=== PATIENT | male | born 1970 | race Caucasian/White ===

== ENCOUNTER 2017-06-04 07:15 | Emergency (ER) | payer BC, OTHER ==
--- NOTE | 2017-06-04 07:49 | Emergency Department Record ---
History of Present Illness - General Chief complaint: Pain Stated complaint: PAIN WHEN BREATHING ON RIGHT SIDE Time Seen by Provider: 06/04/17 07:30 Source: Patient Mode of Arrival: Ambulatory Limitations: No limitations - History of Present Illness Initial comments: The patient is here due to R sided chest pain for about 7 hours. He describes the pain as a sharp stabbing aching pain under the R breast which intermittently radiates laterally. The patient denies any L sided CP, SOB, BHARTI, sweating, or BYERS. The pain ONLY comes on with deep breathing. He has had a recent dry cough but no fever, chills, body aches or LUNDBERG. The patient does have a hx of bronchitis and possibly pneumonia and has had similar issues in the past with those conditions. MD Complaint: Other Onset/Timin -: Hour(s) Location: Right, Other History of Same: No Quality: Aching, Sharp Consistency: Other - Related Data Home Medications Medication Instructions Recorded Confirmed Last Taken Atorvastatin Calcium [Lipitor] 10 mg PO QHS 06/04/17 06/04/17 06/03/17 Zolpidem Tartrate 10 mg PO QHS 06/04/17 06/04/17 06/01/17 Previous Rx's Medication Instructions Recorded Azithromycin [Zithromax] 250 mg PO DAILY #4 tab 06/04/17 Benzonatate [Tessalon Perle] 100 mg PO TID #15 capsule 06/04/17 Allergies Allergy/AdvReac Type Severity Reaction Status Date / Time No Known Drug Allergies Allergy Verified 06/04/17 07:28 Travel Screening - Travel/Exposure Within Last 30 Days Have you traveled within the last 30 days?: No - Travel/Exposure Within Last Year Have you traveled outside the [place] in the last year?: No - Additonal Travel Details Have you been exposed to anyone with a communicable illness?: No - Travel Symptoms Symptom Screening: None Review of Systems Constitutional: Denies: Chills, Fever Eyes: Denies: Eye discharge ENT: Denies: Congestion Respiratory: Reports: Cough. Denies: Dyspnea, Hemoptysis, Stridor, Wheezes Past Medical History - SOCIAL HISTORY Smoking Status: Never smoker Alcohol Use: Heavy Drug Use: None - RESPIRATORY Hx Respiratory Disorders: Yes Hx Bronchitis: Yes Hx Pneumonia: Yes - CARDIOVASCULAR Hx Cardio Disorders: Yes Hx Hypertension: Yes - NEURO Hx Neuro Disorders: No - GI Hx GI Disorders: Yes Hx Hiatal Hernia: Yes - Hx Genitourinary Disorders: No - ENDOCRINE Hx Endocrine Disorders: No - MUSCULOSKELETAL Hx Musculoskeletal Disorders: Yes Hx Arthritis: Yes - PSYCH Hx Psych Problems: No - HEMATOLOGY/ONCOLOGY Hx Hematology/Oncology Disorders: No Family Medical History Any Significant Family History?: No Hx Resp Disorders: Mother Physical Exam - General General Appearance: Alert, Oriented x3, Cooperative, No acute distress - Head Head exam: Atraumatic, Normocephalic, Normal inspection - Eye Eye exam: Normal appearance, PERRL - ENT Throat exam: Normal inspection. negative: Tonsillar erythema, Tonsillar exudate - Neck Neck exam: Normal inspection, Full ROM. negative: Tenderness - Respiratory Respiratory exam: Normal lung sounds bilaterally. negative: Respiratory distress - Cardiovascular Cardiovascular Exam: Regular rate, Normal rhythm, Normal heart sounds - GI/Abdominal GI/Abdominal exam: Soft, Normal bowel sounds. negative: Tenderness - Extremities Extremities exam: Normal inspection, Full ROM, Normal capillary refill. negative: Calf tenderness, Pedal edema, Tenderness - Neurological Neurological exam: Alert. negative: Motor sensory deficit Course Vital Signs 06/04/17 07:19 Temperature 97.8 F Pulse Rate 91 H Respiratory 18 Rate Blood Pressure 150/101 Pulse Ox 98 - Reevaluation(s) Reevaluation #1: The patient is doing better. He states the pain is much improved with the Toradol. I did discuss the xray which did demonstrate a subtle RUL infiltrate with the patient. Due to the mildly elevated D-dimer I did discuss the need for a CT with the patient to R/O PE. 06/04/17 9:00 Reevaluation #2: The patient is doing very well and denies any pain or discomfort with regular breathing. He also denies any SOB or fever. I did discuss the CT report and the need for F/U next week with his PCP and to bring the formal CT report. 06/04/17 10:04 Medical Decision Making - Data Complexity MDM Data: Labs Ordered and/or Reviewed, X-Ray Ordered and/or Reviewed, EKG Ordered and/or Reviewed - Lab Data Result diagrams: 06/04/17 07:45 06/04/17 07:45 - EKG Data -: EKG Interpreted by Me EKG: No Acute Changes (Mildly prolonged FL interval. O/W neg.) - Radiology Data Radiology results: Report reviewed (CXR: RUL infiltrate Chest CT: Neg PE.) Disposition Disposition: Discharge Clinical Impression: Pneumonia Qualifiers: Pneumonia type: due to unspecified organism Laterality: right Lung location: upper lobe of lung Qualified Code(s): J18.1 - Lobar pneumonia, unspecified organism Disposition: Home, Self-Care Condition: (2) Stable Instructions: Pneumonitis (ED) Additional Instructions: Please take Tylenol or Motrin for pain and continue the Zithromax tomorrow. Use the Tessalon for the cough. Please see your PCP next week for recheck and please bring your formal CT report. Return to the ER for any increased cough, fever, or pain. Prescriptions: Azithromycin [Zithromax] 250 mg PO DAILY #4 tab Benzonatate [Tessalon Perle] 100 mg PO TID #15 capsule Forms: Patient Portal Access Time of Disposition: 10:01 Quality - Quality Measures Quality Measures: N/A - Blood Pressure Screening View Details: Yes Does Patient Have Any of the Following: Active Dx of HTN Blood Pressure Classification: Hypertensive Reading Systolic Measurement: 150 Diastolic Measurement: 101 Screening for High Blood Pressure: Patient Exclusion, Hx of HTN [G9744]
[2017-06-04 07:56] LABS: BASO % 0.3 % (0-6); GRAN % 63.1 % (47-80); HEMATOCRIT 45.4 % (42.0-52.0); HEMOGLOBIN 15.3 gm/dl (14.0-18.0); LYMPH % 22.1 % (16-45); MEAN CELL VOLUME 84.9 fl (81-97); MEAN CORPUSCULAR HEMOGLOBIN 28.6 pg (27-33); MEAN CORPUSCULAR HGB CONC 33.7 g/dl (32-36); MEAN PLATELET VOLUME 9.9 fl (7.4-10.4); MONO % 10.5 % (0-9); PLATELET COUNT 407 K/uL (130-400); RED BLOOD COUNT 5.35 M/uL (4.40-5.70); RED CELL DISTRIBUTION WIDTH 12.8 % (11.5-14.5); WHITE BLOOD COUNT W/O DIFF 8.8 K/uL (4.2-12.2)
[2017-06-04 08:13] LABS: PARTIAL THROMBOPLASTIN TIME 28.2 SECONDS (24.5-39.1); PROTHROMBIN TIME (PATIENT) 10.4 SECONDS (9.5-12.1)
[2017-06-04 08:18] LABS: BLOOD UREA NITROGEN 19 mg/dL (6-20); CREATININE 0.9 mg/dL (0.7-1.2); EST GLOMERULAR FILTRATION RATE > 60 mL/min
[2017-06-04 08:21] LABS: GLUCOSE,RANDOM 98 mg/dL (74-109)
[2017-06-04 08:24] LABS: CREATINE PHOSPHOKINASE 159 U/L (39-308)
[2017-06-04 08:25] LABS: CKMB 3.2 ng/mL (<6.73)
[2017-06-04] MEDS ORDERED: KETOROLAC 30 MG/ML VIAL IVP ONE (08:27)
[2017-06-04] MEDS ORDERED: 0.9 % SODIUM CHLORIDE 1,000 ML BAG IV ONE (08:31)
[2017-06-04] MEDS ORDERED: CEFTRIAXONE SODIUM 1 GM in 0.9 % SODIUM CHLORIDE 100ML 100 ML IVPB ONE (08:35)
[2017-06-04] MEDS ORDERED: AZITHROMYCIN 500 MG TABLET PO ONE (08:36)
--- NOTE | 2017-06-05 07:07 | RADIOLOGY REPORT ---
DATE: 06/04/2017 at 0814. EXAM: CHEST, TWO VIEWS. HISTORY: Upper, anterior right-sided chest wall pain for seven hours. TECHNIQUE: Upright PA and lateral views of the chest. COMPARISON: None. FINDINGS: The heart is not enlarged, and the pulmonary vasculature is nondilated. Patchy mixed opacities are suggested in the lateral aspect of the right upper lobe consistent with atelectasis, infiltrate, or less likely scarring. The lungs and pleural spaces are otherwise clear. There are mild degenerative changes scattered throughout the visualized spine. IMPRESSION: A SMALL AREA OF PATCHY MIXED OPACITY WITHIN THE LATERAL RIGHT UPPER LOBE, DISCUSSED ABOVE. SHORT-TERM FOLLOW-UP RADIOGRAPHIC EXAMINATION IS RECOMMENDED. JOB NUMBER: [id number] MTDD
--- NOTE | 2017-06-05 08:26 | CT ANGIOGRAM REPORT ---
EXAM: CT ANGIOGRAM OF THE CHEST HISTORY: RIGHT SIDED CHEST PAIN. TECHNIQUE: Routine contrast enhanced helical CT examination of the thorax was performed utilizing a pulmonary embolus protocol with 90 ml of Omnipaque 350 utilized. Coronal and sagittal reformatted images are generated and reviewed. Comparison: Same day two view chest radiographic examination. FINDINGS: Opacification of the pulmonary arteries is satisfactory for interpretation. No luminal filling defect is noted in the outflow track, main arteries, lobar arteries nor proximal segmental arteries to suggest acute pulmonary embolic disease. The heart is not enlarged. No mediastinal mass nor adenopathy is seen. There is mild lymphoid tissue prominence in the right hilum. No lymphoid tissue prominence in the left hilum. There is wedge shaped confluent opacity in the lateral right upper lobe extending to the pleural surface measuring 2.3 x 4.2 cm. This is suspicious for pneumonia and there is possible early pneumonocele formation within. Minor patchy opacities are noted in the dependent lung bases consistent with healed granulomatous disease. Minor mixed opacity in the lingula and medial segment of the right middle lobe consistent with atelectasis or scar. There are several small calcified nodules scattered within each lung consistent with healed granulomatous disease. A couple tiny subpleural nodules in the posterolateral right lower lobe are also present. These are not definitely calcified. A similar focus is noted in the lateral left upper lobe as seen on image 86 of 257 measuring 2 mm. These are nonspecific though likely post inflammatory. The lungs and pleural spaces are otherwise clear. The adrenal glands are not enlarged. No lytic or blastic bone lesion. IMPRESSION: 1. NO CT EVIDENCE OF ACUTE PULMONARY EMBOLIC DISEASE. 2. WEDGE SHAPED CONFLUENT OPACITY IN THE RIGHT UPPER LOBE SUSPICIOUS FOR PNEUMONIA. THERE IS POSSIBLE EARLY PNEUMONOCELE FORMATION. THERE IS ALSO ASSOCIATED MILD LYMPHOID TISSUE PROMINENCE IN THE RIGHT HILUM. 3. PATCHY OPACITIES IN THE DEPENDENT LUNG BASES CONSISTENT WITH ATELECTASIS OR MILD INFILTRATE. 4. HEALED GRANULOMATOUS DISEASE. 5. THERE ARE A FEW SMALL NONCALCIFIED NODULES IN EACH LUNG WHICH ARE NONSPECIFIC. IF THERE IS NO HISTORY OF SMOKING AND NO HISTORY OF MALIGNANCY, NO FURTHER EVALUATION IS NECESSARY OTHERWISE, FOLLOW-UP CT EXAMINATION IN TWELVE MONTHS. JOB NUMBER: [id number] [facility]
== END 2017-06-04 10:08 | disposition home or self-care (01) ==
LOC: ER 07:15
DX: J18.1 Lobar pneumonia, unspecified organism (principal); I10 Essential (primary) hypertension
CPT/HCPCS: 99284 ×2; 96365; 96375; 82550; 85025; 85730; 85610; 82553; 80048; 84484; 85379; 71046; 71275; 93005; 93010; Q9967; J1885; J7030

== ENCOUNTER 2017-10-25 15:19 | Observation (INO) | payer BC ==
[2017-10-25] MEDS ORDERED: MORPHINE SULFATE 10 MG/ML VIAL IVP ONE ×3 (15:22→16:45)
--- NOTE | 2017-10-25 15:28 | Emergency Department Record ---
History of Present Illness - General Stated Complaint: chest jpain/willi Time Seen by Provider: 10/25/17 15:20 Source: Patient Mode of Arrival: Ambulatory Limitations: No limitations - History of Present Illness Initial Comments: 47 yo male presents with pain from his neck, through the left chest. He states the onset was while painting with his son at 3pm. He denies any strenuous lifting. He states it hurts to breath, move, twist, lift his arm, turn his neck. No specific injury. No cough. No recent medical problems. No history of neck disease. No CAD. No cough. He is treated for HTN by his doctor. He quite smoking many years ago. He had pneumonia in May but healthy since then. His pain and pneumonia were on the right at that time. PCP is Isaias Resendiz MD Complaint: Chest pain -: Hour(s) (1) Onset: Other (Onset while painting) Pain Location: Left chest Pain Radiation: Neck (on the left) Severity: Severe Quality: Aching Consistency: Constant Improves With: Nothing Worsens With: Exertion, Inspiration, Movement, Palpation Anginal Symptoms: Dyspnea Treatments Prior to Arrival: None - Related Data Previous Rx's Medication Instructions Recorded Azithromycin [Zithromax] 250 mg PO DAILY #4 tab 06/04/17 Benzonatate [Tessalon Perle] 100 mg PO TID #15 capsule 06/04/17 Allergies Allergy/AdvReac Type Severity Reaction Status Date / Time No Known Drug Allergies Allergy Verified 06/04/17 07:28 Review of Systems Constitutional: Denies: Chills, Fever, Malaise, Weakness Eyes: Denies: Eye discharge ENT: Denies: Congestion, Throat pain Respiratory: Reports: Cough, Dyspnea. Denies: Hemoptysis, Stridor, Wheezes Cardiovascular: Reports: Chest pain, Dyspnea on exertion. Denies: Palpitations , Syncope Endocrine: Denies: Fatigue, Polydipsia, Polyuria Gastrointestinal: Denies: Abdominal pain, Diarrhea, Nausea, Vomiting Genitourinary: Denies: Dysuria, Frequency, Hematuria Musculoskeletal: Denies: Arthralgia, Back pain, Joint swelling, Myalgia Skin: Denies: Bruising, Change in color, Rash Neurological: Denies: Headache, Numbness, Weakness Psychiatric: Denies: Anxiety Hematological/Lymphatic: Denies: Blood Clots, Easy bleeding, Easy bruising Past Medical History - SOCIAL HISTORY Smoking Status: Never smoker Drug Use: None - RESPIRATORY Hx Respiratory Disorders: Yes Hx Bronchitis: Yes Hx Pneumonia: Yes - CARDIOVASCULAR Hx Cardio Disorders: Yes Hx Hypertension: Yes - NEURO Hx Neuro Disorders: No - GI Hx GI Disorders: Yes Hx Hiatal Hernia: Yes - Hx Genitourinary Disorders: No - ENDOCRINE Hx Endocrine Disorders: No - MUSCULOSKELETAL Hx Musculoskeletal Disorders: Yes Hx Arthritis: Yes - PSYCH Hx Psych Problems: No - HEMATOLOGY/ONCOLOGY Hx Hematology/Oncology Disorders: No Family Medical History Hx Resp Disorders: Mother Physical Exam - General General Appearance: Alert, Oriented x3, Cooperative, Mild distress, Anxious Limitations: No limitations - Head Head exam: Atraumatic, Normocephalic, Normal inspection - Eye Eye exam: Normal appearance. negative: Conjunctival injection - ENT ENT exam: Normal exam, Mucous membranes moist Ear exam: Normal external inspection Nasal Exam: Normal inspection Mouth exam: Normal external inspection - Neck Neck exam: Normal inspection - Respiratory Respiratory exam: Accessory muscle use, Chest wall tenderness, Decreased breath sounds, Rhonchi. negative: Normal lung sounds bilaterally - Cardiovascular Cardiovascular Exam: Normal rhythm, Tachycardia Peripheral Pulses: 2+: Radial (R), Radial (L) - GI/Abdominal GI/Abdominal exam: Soft. negative: Tenderness - Rectal Rectal exam: Deferred - exam: Deferred - Extremities Extremities exam: Normal inspection, Normal capillary refill. negative: Full ROM (moving the arm reproduces the pain) - Back Back exam: Reports: Normal inspection, Muscle spasm, Paraspinal tenderness, Tenderness. Denies: CVA tenderness (R), CVA tenderness (L), Full ROM Image of Body Front/Back: 1 - tenderness to palpation medail to the scapula - Neurological Neurological exam: Alert, Normal gait, Oriented X3 - Psychiatric Psychiatric exam: Anxious - Skin Skin exam: Dry, Intact, Normal color, Warm Course - Reevaluation(s) Reevaluation #1: EKG #1: 1519 Rate: 112 Rhythm: Sinus Tachycardia [place]: Normal Intervals: Normal ST segments: Normal Significant motion artifact. Will repeat when pain is controlled Prior: No change from 06/04/17 10/25/17 15:31 The patient's pain on examination is very reproducible with movement, palpation and breathing. It is positional. He is most comfortable up right. The pain is worsened by laying down, palpation and any movement. 10/25/17 15:34 The EMR was reviewed. The patient was seen in May for right sided pain with breathing at that time. 10/25/17 15:50 On recheck the pain is still very positional, hurts with any inspiration or movement. 10/25/17 15:59 The CBC was reviewed WBC is 13.6 The D-Dimer is elevated at 1.96 10/25/17 16:16 The CMP was negative for acute changes The Troponin was negative On recheck the patient is starting to get much more relaxed. The pain with moving and breathing is greatly improved. 10/25/17 16:27 EKG #2: 1621 Rate: 82 Rhythm: Sinus [place]: Normal Intervals: [place] [address] ST segments: No acute changes Prior: Artifact resolved on 2nd EKG 10/25/17 16:30 CXR read as LLL air space opacity suspicious for pneumonia. 10/25/17 16:31 HR greatly improved to 82 100% oxygen saturation CTA ordered with elevated DDimer. 10/25/17 17:[address] was negative for PE, aneurysm, dissection. Dense consolidation of the left lower lung base likely pneumonia. 10/25/17 18:09 The patient at times on room air drops his saturations to the upper 80's I recommend admission, IV antibiotics, steroids, oxygen Dr Jaime accepts the admission Medical Decision Making - Lab Data Result diagrams: 10/25/17 15:25 10/25/17 15:25 Disposition Disposition: Admit Clinical Impression: Pneumonia Qualifiers: Pneumonia type: due to unspecified organism Laterality: bilateral Lung location : lower lobe of lung Qualified Code(s): J18.1 - Lobar pneumonia, unspecified organism Disposition: Still a Patient at [facility] [place] Decision to Admit: Admit from ER Decision to Admit Date: 10/25/17 Decision to Admit Time: 18:09 Condition: (2) Stable Time of Disposition: 18:09 Quality - Quality Measures Quality Measures: N/A - Blood Pressure Screening Does Patient Have Any of the Following: Active Dx of HTN Blood Pressure Classification: Pre-Hypertensive BP Reading Systolic Measurement: 137 Diastolic Measurement: 83 Screening for High Blood Pressure: Patient Exclusion, Hx of HTN [G9854]
[2017-10-25 15:32] LABS: BASO % 0.1 % (0-6); EOS % 1.7 % (0-6); GRAN % 68.4 % (47-80); HEMATOCRIT 48.2 % (42.0-52.0); LYMPH % 19.5 % (16-45); MEAN CORPUSCULAR HEMOGLOBIN 28.9 pg (27-33); MEAN CORPUSCULAR HGB CONC 33.2 g/dl (32-36); MEAN PLATELET VOLUME 9.9 fl (7.4-10.4); MONO % 10.3 % (0-9); PLATELET COUNT 373 K/uL (130-400); RED BLOOD COUNT 5.54 M/uL (4.40-5.70); RED CELL DISTRIBUTION WIDTH 14.7 % (11.5-14.5); WHITE BLOOD COUNT W/O DIFF 13.8 K/uL (4.2-12.2)
[2017-10-25] MEDS ORDERED: KETOROLAC 30 MG/ML VIAL IVP ONE (15:34)
[2017-10-25 15:43] LABS: BLOOD UREA NITROGEN 15 mg/dL (6-20); CREATININE 0.9 mg/dL (0.7-1.2); EST GLOMERULAR FILTRATION RATE > 60 mL/min
[2017-10-25 15:46] LABS: GLUCOSE,RANDOM 100 mg/dL (74-109); PARTIAL THROMBOPLASTIN TIME 28.1 SECONDS (24.5-39.1); PROTHROMBIN TIME (PATIENT) 10.4 SECONDS (9.5-12.1)
[2017-10-25 15:48] LABS: ALT/SGPT 42 U/L (<41)
[2017-10-25 15:49] LABS: ALB/GLOB RATIO 1.4 (1.1-1.8); ALBUMIN 4.7 g/dL (4.0-5.0); ALKALINE PHOSPHATASE 86 U/L (40-129); AST/SGOT 30 U/L (10.0-50.0)
[2017-10-25] MEDS ORDERED: ACETAMINOPHEN 1,000 MG/100 ML BTL IVPB ONE (15:49)
[2017-10-25] MEDS ORDERED: CEFTRIAXONE SODIUM 1 GM in 0.9 % SODIUM CHLORIDE 100ML 100 ML IVPB ONE (17:55)
[2017-10-25] MEDS ORDERED: DEXAMETHASONE SOD PHOSPHATE 10MG/ML VIAL IVP ONE (17:55)
[2017-10-25] MEDS ORDERED: AZITHROMYCIN 500 MG TABLET PO ONE (17:55)
[2017-10-25] MEDS ORDERED: 0.9 % SODIUM CHLORIDE 1000ML 1,000 ML IV PRN (18:37)
[2017-10-25] MEDS ORDERED: ACETAMINOPHEN 500 MG TABLET PO PRN (18:37)
[2017-10-25] MEDS ORDERED: MORPHINE SULFATE 10 MG/ML VIAL IVP PRN (18:37)
[2017-10-25] MEDS ORDERED: IPRATROPIUM/ALBUTEROL (0.5MG/3MG) NEB INH PRN (18:37)
[2017-10-25] MEDS ORDERED: KETOROLAC 30 MG/ML VIAL IVP PRN (18:37)
[2017-10-25] MEDS ORDERED: CEFTRIAXONE SODIUM 1 GM in 0.9 % SODIUM CHLORIDE 100ML 100 ML IVPB SCH (18:37)
[2017-10-25] MEDS ORDERED: AZITHROMYCIN 500 MG in 0.9 % SODIUM CHLORIDE 250ML 250 ML IVPB SCH (18:37)
[2017-10-25] MEDS: METHYLPREDNISOLONE PF 125MG/VIAL IVP SCH (19:51)
[2017-10-25] MEDS ORDERED: ZOLPIDEM TARTRATE 5 MG TABLET PO SCH (22:00)
[2017-10-25] MEDS ORDERED: Non-Formulary MISC (Zolpidem Tartrate [Zolpidem Tartrate] 10 MG) PO SCH (22:00)
[2017-10-25] MEDS: BENZONATATE 100 MG CAPSULE PO SCH (22:06)
[2017-10-26] MEDS: METHYLPREDNISOLONE PF 125MG/VIAL IVP SCH ×2 (02:14→09:53)
[2017-10-26 06:09] LABS: BASO % 0.1 % (0-6); HEMATOCRIT 43.7 % (42.0-52.0); HEMOGLOBIN 14.6 gm/dl (14.0-18.0); LYMPH % 2.8 % (16-45); MEAN CELL VOLUME 87.6 fl (81-97); MEAN CORPUSCULAR HEMOGLOBIN 29.3 pg (27-33); MEAN CORPUSCULAR HGB CONC 33.4 g/dl (32-36); MEAN PLATELET VOLUME 10.1 fl (7.4-10.4); MONO % 3.7 % (0-9); PLATELET COUNT 327 K/uL (130-400); RED BLOOD COUNT 4.99 M/uL (4.40-5.70); RED CELL DISTRIBUTION WIDTH 14.8 % (11.5-14.5); WHITE BLOOD COUNT W/O DIFF 19.1 K/uL (4.2-12.2)
[2017-10-26] MEDS: BENZONATATE 100 MG CAPSULE PO SCH (09:55)
[2017-10-26] MEDS ORDERED: CEFTRIAXONE SODIUM 1 GM in 0.9 % SODIUM CHLORIDE 100ML 100 ML IVPB ONE (11:26)
[2017-10-26] MEDS ORDERED: KETOROLAC 30 MG/ML VIAL IVP ONE (11:26)
[2017-10-26] MEDS ORDERED: AZITHROMYCIN 500 MG TABLET PO ONE (11:29)
--- NOTE | 2017-10-26 12:04 | Discharge Note ---
VTE H&P Assessment - Risk for VTE Risk for VTE: No Risk Level: Very Low Risk Assessment Date: 10/26/17 Risk Assessment Time: 11:58 VTE Orders Placed or Will Be Placed: No VTE Reason for No Prophylaxis: Not Indicated Discharge Medications - Discharge Medications Prescriptions: Azithromycin [Zithromax] 500 mg PO DAILY #10 tab Cephalexin [Keflex] 500 mg PO QID #40 cap Home Medications: Ambulatory Orders Atorvastatin Calcium [Lipitor] 10 mg PO QHS 06/04/17 [Last Taken 06/03/17] Benzonatate [Tessalon Perle] 100 mg PO TID #15 capsule 06/04/17 [Last Taken Unknown] Zolpidem Tartrate 10 mg PO QHS 06/04/17 [Last Taken 06/01/17] Acetaminophen [Tylenol 500Mg Tab] 1,000 mg PO Q6H PRN tablet 10/26/17 [Last Taken Unknown] Azithromycin [Zithromax] 500 mg PO DAILY #10 tab 10/26/17 [Last Taken Unknown] Cephalexin [Keflex] 500 mg PO QID #40 cap 10/26/17 [Last Taken Unknown] Discharge Note - Date Date of Discharge Note: 10/26/17 Disposition: Home, Self-Care Condition: (2) Stable Instructions: Pneumonia (DC) Additional Instructions: follow up with Dr. Isaias Resendiz in 3 to 5 days take zithromycin 500 mg once a day keflex 500 mg four times a day Forms: Patient Portal Access Diet at Discharge: Regular Diet
--- NOTE | 2017-10-27 14:39 | RADIOLOGY REPORT ---
EXAM: CHEST 1 VIEW HISTORY: CHEST PAIN. TECHNIQUE: AP chest. COMPARISON: 06/04/17 chest. FINDINGS: Heart size is normal. Air space opacity left lung base, suspicious for pneumonia. No pneumothorax. IMPRESSION: FINDINGS SUSPICIOUS FOR LEFT BASILAR PNEUMONIA. RECOMMEND FOLLOW-UP TO RESOLUTION. JOB NUMBER: [id number] MTDD
--- NOTE | 2017-10-27 14:52 | CT ANGIOGRAM REPORT ---
EXAM: CT ANGIOGRAM CHEST CTA w contrast HISTORY: LEFT-SIDED PAIN. TECHNIQUE: CTA chest performed following IV administration of 100 mL Omnipaque- 350 contrast. Axial images were obtained with coronal and sagittal MIP reconstructions. COMPARISON: Prior CTA chest 06/04/17. FINDINGS: The mediastinal vasculature enhances normally. There is no intraluminal filling defect to suggest pulmonary embolus. Negative for thoracic aortic aneurysm or dissection. Cardiomegaly. Nonenlarged mediastinal and hilar lymph nodes. Limited evaluation of the upper abdomen is grossly unremarkable. Osseous structures are grossly intact. No pneumothorax. Minor emphysematous changes in the lung apices. Airspace opacities with consolidative changes in the lung bases bilaterally, more pronounced on the left. Tiny left effusion is also suggested. There is somewhat nodular appearance to the airspace opacity in the medial left lung base. IMPRESSION: 1. NEGATIVE FOR PULMONARY EMBOLUS, THORACIC AORTIC ANEURYSM, OR DISSECTION. 2. RATHER EXTENSIVE AIRSPACE OPACITIES AND CONSOLIDATIVE CHANGES IN THE LUNG BASES BILATERALLY. A MORE NODULAR APPEARANCE TO AN OPACITY IN THE MEDIAL LEFT LUNG BASE. FINDINGS MAY REFLECT PNEUMONIA, HOWEVER, CONTINUED CLOSE FOLLOW-UP RECOMMENDED FOLLOWING APPROPRIATE THERAPY TO ENSURE RESOLUTION IS RECOMMENDED. JOB NUMBER: [id number] [facility]
--- NOTE | 2017-10-28 12:40 | Discharge Summary ---
DATE OF ADMISSION: 10/25/2017 DATE OF DISCHARGE: 10/26/2017 Attending physician: Eduardo Jaime, DO DISCHARGE DIAGNOSES: 1. Left lower lobe pneumonia. 2. Left pleurisy. 3. Musculoskeletal chest wall pain, left thoracic chest area. 4. History of hypercholesterolemia. REASON FOR HOSPITALIZATION: The patient had left-sided chest pain and left neck pain after painting. Came into the emergency department, seen in the emergency department by Dr. Knapp, admitted to the hospital for left lower lobe pneumonia. He had a CTA of the chest which was negative for PE, dissection did show infiltrate in the left lower lobe. Chest x-ray also showed a left lower lobe infiltrate. EKG showing no acute changes. Troponin T was negative. The D-Dimer was elevated at 1.98. He did have some low pulse ox readings in the emergency department. Pulse ox in the high 80s; however, that has resolved at this time. SIGNIFICANT FINDINGS: Chest x-ray showing a left lower lobe infiltrate. CTA negative for PE, but showing a left lower lobe infiltrate. EKG negative. D-Dimer is elevated at 1.98. The Troponin T was negative. THERAPY PROVIDED: He was given Decadron 10 mg IV, Solu-Medrol 60 mg IV. He was given antibiotics Rocephin 1 gram IV and Azithromycin IV. He was also given oxygen therapy and IV fluids. The patient is feeling much better today. He still has pain on palpation of the left chest wall. HOSPITAL COURSE: Improved. He wants to go home. They recommended he stay, however he said that he would feel much better at home. Since his vitals have stabilized, I feel he could safely go home with close followup with Dr. Rhett Resendiz for making sure this totally resolves. His is at the bedside, she is willing to watch him and bring him back if he gets worse. CONDITION ON DISCHARGE: Improved and stable. DISCHARGE INSTRUCTIONS: 1. Follow up with Dr. Rhett Resendiz in 3 to 5 days. 2. We will give one more dose of Rocephin prior to discharge. 3. Motrin 600 mg t.i.d. [id number]. 4. Keflex 500 mg 4 times a day for 10 days. 5. Azithromycin 500 mg once a day. CC: Dr. Rhett JON
--- NOTE | 2017-10-28 12:40 | History and Physical Report ---
DATE OF ADMISSION: 10/25/2017 Surgeon: Eduardo Jaime DO CHIEF COMPLAINT: Left-sided chest pain which started while painting at home just prior to arrival to the emergency department. He did have some diarrhea during the day, 3 loose stools, possible cough, but he did not say much of a cough. No congestion. HISTORY OF PRESENT ILLNESS: He was seen in the emergency department by Dr. Knapp and admitted for left lower lobe pneumonia, left pleurisy, and left musculoskeletal chest wall pain. He states the pain started in his neck and in the left chest. He was painting with his son at 3 p.m. when it came on. He denies any strenuous lifting. He states it hurts to take a breath, move, twist, or lift his arm. It is reproducible on palpation. No coronary artery disease, no neck disease. He does have lumbar back pain, which he is being treated with injections with a doctor at [facility]. He quit smoking cigarettes 10 years ago. He stopped chewing tobacco 1 month ago. He did have a bout of pneumonia in May of this year, right-sided though. The patient was given IV Decadron, IV Solu-Medrol, morphine, and IV Tylenol in the emergency department. His white count went up because of the IV Decadron and IV Solu-Medrol. PAST MEDICAL HISTORY: Hypercholesterolemia, possibly hypertension, but not taking any medication for it. His blood pressure was much better today. It was up when he had chest wall pain. He has GERD and arthritis. PAST SURGICAL HISTORY: He has had an umbilical hernia repair, bilateral knee surgeries, back injections. MEDICATIONS ON ADMISSION: 1. Ambien 10 mg q.h.s. 2. Tessalon Perles, probably not taking those, they are probably from his pneumonia in May of 2017. 3. Atorvastatin 10 mg daily at night. ALLERGIES: No known drug allergies. FAMILY PSYCHOSOCIAL HISTORY: His mother had respiratory problems. He stopped smoking cigarettes 10 years ago, he stopped chewing tobacco 1 month ago. No alcohol or drug use. REVIEW OF SYSTEMS: HEENT: Did not have really any congestion, cough, or sore throat. A little bit concerned about the diagnosis of pneumonia with those symptoms absent. CARDIOVASCULAR: See chief complaint. He did have left-sided chest pain, which was reproducible and it is still reproducible when he touches his left chest now. He denies any heart disease or orthopnea. He was short of breath when he came into the emergency department yesterday. He is breathing better today. His pulse ox is back to normal on room air. RESPIRATORY: See chief complaint. He has a slight cough, congestion, and left-sided chest pain. GASTROINTESTINAL: No nausea, vomiting, diarrhea, or black stools or bloody stools. He did have some diarrhea yesterday, three bouts and none today. GENITOURINARY: No dysuria, hematuria, or frequency or burning on urination. MUSCULOSKELETAL: He has arthritis and low back pain. NEUROLOGIC: No CVA paralysis or paresthesias. ENDOCRINE: No diabetes or thyroid disease. INTEGUMENT: No rash, ulcer, change in moles, or yellow skin. PHYSICAL EXAMINATION: GENERAL: Height is 5 feet 8 inches. Weight is 230 pounds. VITAL SIGNS: Temperature is 98.4, pulse is 107, blood pressure is 113/90, respiratory rate is 18, pulse ox is 96% on room air. HEENT: Pupils are equal, round, and reactive to light and accomodation. Extraocular muscles intact. Throat is clear. Nose is clear. Tympanic membranes are almaguer. NECK: Supple. No jugular venous distention, no hepatojugular reflux, no carotid bruits. Thyroid is smooth. CARDIOVASCULAR: Regular rate and rhythm. No clicks, rubs, or gallops. RESPIRATORY: Clear to auscultation. Breath wound are equal bilaterally. No echophony heard in the left lower quadrant. ABDOMEN: Soft and nontender. No hepatosplenomegaly, no tenderness. Bowel sounds are active, no bruits. He is overweight. EXTREMITIES: No pitting edema, no cyanosis, no clubbing. Full range of motion, peripheral pulses are good. BREASTS: Normal male breasts. RECTAL: Deferred. GENITALIA: Deferred. NEUROLOGIC: Cranial nerves II through XII intact. No gross defects. Sensation normal, strength normal, deep tendon reflexes equal bilaterally. Babinski's is negative. MENTAL STATUS: Alert and oriented x 3. IMPRESSION: 1. Left lower lobe pneumonia. 2. Left pleurisy. 3. History of hypercholesterolemia. 4. Musculoskeletal chest wall pain on the left side of his chest. PLAN: 1. Continue the IV Rocephin and Azithromycin, however, the patient would like to go home. We will give him 1 dose of Rocephin and then continue the Azithromycin once a day. 2. Motrin for pain 600 mg 3 times a day. 3. Close follow up with Dr. Resendiz. He does not want to stay in the hospital. I told him the best option would be to stay in the hospital for further evaluation, however he was very set on going home, so we will do the second best treatment of treating him outpatient with Azithromycin following up with Dr. Rhett Resendiz in the next 3 to 5 days. MTDD
== END 2017-10-26 12:45 | disposition home or self-care (01) ==
LOC: ER 15:19 → MEDSURG 18:25 → INTOOBSV 18:25
PROVIDERS: ADMIT Emergency Medicine; ATTEND Emergency Medicine
DX: J18.1 Lobar pneumonia, unspecified organism (principal); R09.1 Pleurisy; I10 Essential (primary) hypertension; M19.90 Unspecified osteoarthritis, unspecified site; Z87.891 Personal history of nicotine dependence; E78.00 Pure hypercholesterolemia, unspecified; K21.9 Gastro-esophageal reflux disease without esophagitis; K44.9 Diaphragmatic hernia without obstruction or gangrene
CPT/HCPCS: 99285 ×2; 96376; 96365; 96366; 96375; 85025; 85730; 85610; 80053; 84484; 85379; 85027; 71045; 71275; 93005; 93010; G0378 ×2; Q9967; J1885 ×2; J3490; J1100; J2270; 99220; J2930

== ENCOUNTER 2017-10-28 06:01 | Emergency (ER) | payer BC ==
[2017-10-28] MEDS ORDERED: FENTANYL PF 100MCG/2ML VIAL IVP ONE (06:25)
[2017-10-28] MEDS ORDERED: KETOROLAC 30 MG/ML VIAL IVP ONE (06:25)
[2017-10-28] MEDS ORDERED: 0.9 % SODIUM CHLORIDE 1000ML 1,000 ML IV SCH (06:30)
--- NOTE | 2017-10-28 06:32 | Emergency Department Record ---
History of Present Illness - General Chief Complaint: Shortness of breath Stated Complaint: DIAGNOSED SATURDAY W/PNEUMONIA Time Seen by Provider: 10/28/17 06:19 Source: Patient Mode of Arrival: Ambulatory Limitations: No limitations - History of Present Illness Initial Comments: 47 yo male presents to ED for evaluation of left sided chest pain symptoms following diagnosis and admission for left sided pneumonia. Patient reports that he has been taking Zithromax and Keflex as directed for his pneumonia, has been taking motrin as needed for his pain symptoms. Patient reports pain with with movement and breathing. Patient denies history of DVT/PE, denies health problems at his baseline. MD Complaint: Chest pain Onset/Timin -: Days(s) Radiation: Back Severity: Moderate Severity scale (1-10): 8 Quality: Sharp Consistency: Constant Improves With: Nothing Worsens With: Exertion, Inspiration, Lying flat, Movement Associated Symptoms: Chest pain Treatments Prior to Arrival: Other - Related Data Home Oxygen Therapy: No Previous Rx's Medication Instructions Recorded Benzonatate [Tessalon Perle] 100 mg PO TID #15 capsule 06/04/17 Acetaminophen [Tylenol 500Mg Tab] 1,000 mg PO Q6H PRN tablet 10/26/17 Azithromycin [Zithromax] 500 mg PO DAILY #10 tab 10/26/17 Cephalexin [Keflex] 500 mg PO QID #40 cap 10/26/17 Hydrocodone/Acetaminophen [[place] 1 each PO Q6H PRN #8 tablet 10/28/17 5-325 Tablet] Allergies Allergy/AdvReac Type Severity Reaction Status Date / Time No Known Drug Allergies Allergy Verified 06/04/17 07:28 Travel Screening - Travel/Exposure Within Last 30 Days Have you traveled within the last 30 days?: No - Travel/Exposure Within Last Year Have you traveled outside the [place] in the last year?: No - Additonal Travel Details Have you been exposed to anyone with a communicable illness?: No - Travel Symptoms Symptom Screening: None Review of Systems Constitutional: Denies: Chills, Fever, Malaise, Night sweats Eyes: Denies: Eye discharge, Eye pain ENT: Denies: Congestion, Ear pain, Epistaxis Respiratory: Denies: Cough, Dyspnea, Hemoptysis Cardiovascular: Reports: Chest pain, Dyspnea on exertion. Denies: Edema Endocrine: Denies: Fatigue, Heat or cold intolerance Gastrointestinal: Denies: Abdominal pain, Nausea, Vomiting Genitourinary: Denies: Incontinence, Retention Musculoskeletal: Denies: Arthralgia, Back pain Skin: Denies: Bruising, Change in color Neurological: Denies: Abnormal gait, Confusion, Headache, Seizure Psychiatric: Denies: Anxiety Hematological/Lymphatic: Denies: Anemia, Blood Clots Past Medical History - SOCIAL HISTORY Smoking Status: Never smoker Alcohol Use: Heavy Alcohol Use Comment: 6 pk daily Drug Use: None - RESPIRATORY Hx Respiratory Disorders: Yes Hx Bronchitis: Yes Hx Pneumonia: Yes - CARDIOVASCULAR Hx Cardio Disorders: Yes Hx Hypertension: Yes - NEURO Hx Neuro Disorders: No - GI Hx GI Disorders: Yes Hx Hiatal Hernia: Yes - Hx Genitourinary Disorders: No - ENDOCRINE Hx Endocrine Disorders: No Hx Diabetes: No Hx Thyroid Disease: No - MUSCULOSKELETAL Hx Musculoskeletal Disorders: Yes Hx Arthritis: Yes - PSYCH Hx Psych Problems: No - HEMATOLOGY/ONCOLOGY Hx Hematology/Oncology Disorders: No Family Medical History Any Significant Family History?: No Hx Cancer: Grandparents Hx Resp Disorders: Mother Physical Exam - General General Appearance: Alert, Oriented x3, Cooperative, Moderate distress Limitations: No limitations - Head Head exam: Atraumatic, Normocephalic, Normal inspection Head exam detail: negative: Abrasion, Contusion, Rader's sign, General tenderness, Hematoma, Laceration - Eye Eye exam: Normal appearance. negative: Conjunctival injection, Periorbital swelling, Periorbital tenderness, Scleral icterus - ENT Ear exam: negative: Auricular hematoma, Auricular trauma Nasal Exam: negative: Active bleeding, Discharge, Dried blood, Foreign body Mouth exam: negative: Drooling, Laceration, Muffled voice, Tongue elevation - Neck Neck exam: Normal inspection. negative: Meningismus, Tenderness - Respiratory Respiratory exam: Other (Decreased BS left diffusely). negative: Rales, Respiratory distress, Rhonchi, Stridor - Cardiovascular Cardiovascular Exam: Regular rate, Normal rhythm, Normal heart sounds - GI/Abdominal GI/Abdominal exam: Soft. negative: Rebound, Rigid, Tenderness - Rectal Rectal exam: Deferred - exam: Deferred - Extremities Extremities exam: Normal inspection. negative: Calf tenderness, Pedal edema, Tenderness - Back Back exam: Denies: CVA tenderness (R), CVA tenderness (L) - Neurological Neurological exam: Alert, Normal gait, Oriented X3 - Psychiatric Psychiatric exam: Normal affect, Normal mood - Skin Skin exam: Normal color. negative: Abrasion Type of lesion: negative: abrasion Course Vital Signs 10/28/17 06:09 Temperature 97.8 F Pulse Rate [ 83 Pulse Ox Probe] Respiratory 20 Rate Blood Pressure 126/113 [Left Arm] Pulse Ox 98 - Reevaluation(s) Reevaluation #1: 10/28/17 06:32 EKG: NSR 99 Normal axis, normal intervals No acute ST-T wave changes Reevaluation #2: 10/28/17 06:55 Laboratory studies were reviewed, WBC 16.4, labs are otherwise grossly unremarkable for an acute process. CXR: LLL infiltrate. Reevaluation #3: 10/28/17 07:20 Patient was reassessed, reports that his pain symptoms are 6/10 on re- examination. Patient declined fentanyl. Discussed options for pain control including admission vs. a short-course of [place] as needed for 48 hours, patient has decided that he would like to go home with a short-course of [place] for his pain symptoms and follow-up with his PCP ( Dr. Resendiz) later today. Patient appears stable for discharge at this time. Medical Decision Making - Lab Data Result diagrams: 10/28/17 06:20 10/28/17 06:20 Disposition Disposition: Discharge Clinical Impression: Pneumonia Qualifiers: Pneumonia type: due to unspecified organism Laterality: left Lung location: lower lobe of lung Qualified Code(s): J18.1 - Lobar pneumonia, unspecified organism Disposition: Home, Self-Care Condition: (2) Stable Instructions: Community Acquired Pneumonia (ED) Additional Instructions: Return to ED if your symptoms worsen or if you have any concerns. Urania as directed. Follow-up with your family doctor in 1-3 days as directed. Prescriptions: Hydrocodone/Acetaminophen [U[place]ia 5-325 Tablet] 1 each PO Q6H PRN #8 tablet PRN Reason: Pain - Mod To Severe (5-10) Forms: Patient Portal Access Time of Disposition: Quality - Quality Measures Quality Measures: N/A - Blood Pressure Screening Does Patient Have Any of the Following: No Blood Pressure Classification: Hypertensive Reading Systolic Measurement: 126 Diastolic Measurement: 113 Screening for High Blood Pressure: < First Hypertensive BP, F/U Documented > [ G8950] First Hypertensive Follow-up Interventions: Referral to alternative/primary care provider.
[2017-10-28 06:34] LABS: BASO % 0.1 % (0-6); EOS % 1.3 % (0-6); GRAN % 77.3 % (47-80); HEMATOCRIT 43.1 % (42.0-52.0); HEMOGLOBIN 14.3 gm/dl (14.0-18.0); LYMPH % 10.4 % (16-45); MEAN CELL VOLUME 88.7 fl (81-97); MEAN CORPUSCULAR HEMOGLOBIN 29.4 pg (27-33); MEAN CORPUSCULAR HGB CONC 33.2 g/dl (32-36); MEAN PLATELET VOLUME 10.6 fl (7.4-10.4); MONO % 10.9 % (0-9); PLATELET COUNT 325 K/uL (130-400); RED BLOOD COUNT 4.86 M/uL (4.40-5.70); RED CELL DISTRIBUTION WIDTH 15.3 % (11.5-14.5); WHITE BLOOD COUNT W/O DIFF 16.4 K/uL (4.2-12.2)
[2017-10-28 06:44] LABS: BLOOD UREA NITROGEN 26 mg/dL (6-20); EST GLOMERULAR FILTRATION RATE > 60 mL/min
[2017-10-28 06:45] LABS: TOTAL PROTEIN 6.9 g/dL (6.6-8.7)
[2017-10-28 06:47] LABS: GLUCOSE,RANDOM 104 mg/dL (74-109)
[2017-10-28 06:49] LABS: ALT/SGPT 81 U/L (<41); AST/SGOT 44 U/L (10.0-50.0)
[2017-10-28 06:50] LABS: ALB/GLOB RATIO 1.2 (1.1-1.8); ALBUMIN 3.8 g/dL (4.0-5.0); ALKALINE PHOSPHATASE 89 U/L (40-129)
[2017-10-28] MEDS ORDERED: HYDROCODONE/APAP 5/325MG TABLET PO ONE (07:20)
--- NOTE | 2017-10-29 07:17 | RADIOLOGY REPORT ---
EXAM: CHEST, TWO VIEWS HISTORY: LEFT SIDED CHEST PAIN, DIFFICULTY IN BREATHING. TECHNIQUE: PA and lateral views of the chest were obtained. Comparison: Portable chest 10/25/17, report of the prior study not as yet available within PACS. FINDINGS: Cardiomegaly. Minor streaky atelectasis or infiltrate in the left base. No pleural effusion or pneumothorax evident. Prominent density overlying the lung base anteriorly in the lateral view is probably largely related to a prominent epipericardial fat pad when compared to the prior CT of . IMPRESSION: 1. CARDIOMEGALY. 2. MILD STREAKY ATELECTASIS OR INFILTRATE IN THE LEFT BASE. JOB NUMBER: [id number] [facility]
[2017-10-30] MEDS ORDERED: HYDROCODONE/APAP 7.5/325MG TABLET PO PRN (09:03)
== END 2017-10-28 07:33 | disposition home or self-care (01) ==
LOC: ER 06:01
DX: J18.1 Lobar pneumonia, unspecified organism (principal); R06.02 Shortness of breath; I10 Essential (primary) hypertension; F17.210 Nicotine dependence, cigarettes, uncomplicated
CPT/HCPCS: 99284 ×2; 96374; 85025; 80053; 84484; 71046; 93005; 93010; J1885; J7030

== ENCOUNTER 2017-10-30 02:46 | Inpatient (IN) | payer BC ==
[2017-10-30] MEDS ORDERED: ONDANSETRON HCL IV 4 MG/2 ML VIAL IVP ONE (02:51)
[2017-10-30] MEDS ORDERED: FENTANYL PF 100MCG/2ML VIAL IVP ONE (02:52)
[2017-10-30] MEDS ORDERED: KETOROLAC 30 MG/ML VIAL IVP ONE (02:52)
--- NOTE | 2017-10-30 02:58 | Emergency Department Record ---
History of Present Illness - General Chief Complaint: Shortness of breath Stated Complaint: BHARTI Time Seen by Provider: 10/30/17 02:47 Source: Patient Mode of Arrival: Ambulatory Limitations: No limitations - History of Present Illness Initial Comments: 47 yo male presents to ED for evaluation of continued right sided chest pain following recent diagnosis of PNA. Patient was admitted and started on antibiotics, returned 10/28 for worsening pain symptoms. Patient was willing to try [place] as needed for his pain symptoms at that time, however [place] has not been helping. Patient reports increased BHARTI and pain symptoms. Patient's SO also reports that she has been monitoring his oxygen saturation, has been unable to obtain a reading greater than 94%. Patient denies fevers, chills, or vomiting symptoms. Patient denies history of DVT, calf swelling or pain symptoms. MD Complaint: Chest pain Onset/Timin -: Week(s) Severity: Severe Quality: Sharp, Stabbing Consistency: Constant Improves With: Nothing Worsens With: Other (Coughing, deep breaths) Known History Of: Other Context: Recent illness, Recent URI Associated Symptoms: Denies other symptoms Treatments Prior to Arrival: Other ([place], Zithromax) - Related Data Home Oxygen Therapy: No Previous Rx's Medication Instructions Recorded Benzonatate [Tessalon Perle] 100 mg PO TID #15 capsule 06/04/17 Acetaminophen [Tylenol 500Mg Tab] 1,000 mg PO Q6H PRN tablet 10/26/17 Azithromycin [Zithromax] 500 mg PO DAILY #10 tab 10/26/17 Cephalexin [Keflex] 500 mg PO QID #40 cap 10/26/17 Hydrocodone/Acetaminophen [[place] 1 each PO Q6H PRN #8 tablet 10/28/17 5-325 Tablet] Allergies Allergy/AdvReac Type Severity Reaction Status Date / Time No Known Drug Allergies Allergy Verified 06/04/17 07:28 Review of Systems Constitutional: Denies: Chills, Fever, Malaise, Night sweats Eyes: Denies: Eye discharge, Eye pain ENT: Reports: Congestion. Denies: Ear pain, Epistaxis Respiratory: Reports: Cough, Dyspnea. Denies: Hemoptysis Cardiovascular: Reports: Chest pain. Denies: Dyspnea on exertion Endocrine: Denies: Fatigue, Heat or cold intolerance Gastrointestinal: Denies: Abdominal pain, Nausea, Vomiting Genitourinary: Denies: Incontinence, Retention Musculoskeletal: Denies: Arthralgia, Back pain, Gout, Joint swelling Skin: Denies: Bruising, Change in color Neurological: Denies: Abnormal gait, Confusion, Seizure Psychiatric: Denies: Anxiety Hematological/Lymphatic: Denies: Anemia, Blood Clots Past Medical History - SOCIAL HISTORY Smoking Status: Never smoker Alcohol Use Comment: 6 pk daily Drug Use: None - RESPIRATORY Hx Respiratory Disorders: Yes Hx Bronchitis: Yes Hx Pneumonia: Yes - CARDIOVASCULAR Hx Cardio Disorders: Yes Hx Hypertension: Yes - NEURO Hx Neuro Disorders: No - GI Hx GI Disorders: Yes Hx Hiatal Hernia: Yes - Hx Genitourinary Disorders: No - ENDOCRINE Hx Endocrine Disorders: No Hx Diabetes: No Hx Thyroid Disease: No - MUSCULOSKELETAL Hx Musculoskeletal Disorders: Yes Hx Arthritis: Yes - PSYCH Hx Psych Problems: No - HEMATOLOGY/ONCOLOGY Hx Hematology/Oncology Disorders: No Family Medical History Hx Cancer: Grandparents Hx Resp Disorders: Mother Physical Exam - General General Appearance: Alert, Oriented x3, Cooperative, Moderate distress Limitations: No limitations - Head Head exam: Atraumatic, Normocephalic, Normal inspection Head exam detail: negative: Abrasion, Contusion, Rader's sign, General tenderness, Hematoma, Laceration - Eye Eye exam: Normal appearance. negative: Conjunctival injection, Periorbital swelling, Periorbital tenderness, Scleral icterus - ENT Ear exam: negative: Auricular hematoma, Auricular trauma Nasal Exam: negative: Active bleeding, Discharge, Dried blood, Foreign body Mouth exam: negative: Drooling, Laceration, Muffled voice, Tongue elevation - Neck Neck exam: Normal inspection. negative: Meningismus, Tenderness - Respiratory Respiratory exam: Decreased breath sounds. negative: Rales, Respiratory distress, Rhonchi, Stridor - Cardiovascular Cardiovascular Exam: Normal rhythm, Normal heart sounds, Tachycardia - GI/Abdominal GI/Abdominal exam: Soft. negative: Rebound, Rigid, Tenderness - Rectal Rectal exam: Deferred - exam: Deferred - Extremities Extremities exam: Normal inspection. negative: Calf tenderness, Pedal edema, Tenderness - Back Back exam: Denies: CVA tenderness (R), CVA tenderness (L) - Neurological Neurological exam: Alert, Normal gait, Oriented X3 - Psychiatric Psychiatric exam: Normal affect, Normal mood - Skin Skin exam: Normal color. negative: Abrasion Type of lesion: negative: abrasion Course Vital Signs 10/30/17 02:51 Temperature 98.1 F Pulse Rate [ 122 H Pulse Ox Probe] Respiratory 24 Rate Blood Pressure 163/100 [Left Arm] Pulse Ox 93 L - Reevaluation(s) Reevaluation #1: 10/30/17 03:04 CTA Chest 10/25/17 Bilateral infiltrates, L>R No PE CXR 10/28/17: Infiltrate left base. Reevaluation #2: 10/30/17 03:10 EKG: NSR 111 Normal axis, normal intervals No acute ST-T wave changes No change from 10/28/17 Reevaluation #3: 10/30/17 03:24 CXR: Interval worsening of infiltrate LLL Zosyn and Levaquin ordered to infuse. Will admit for further evaluation. Labs reviewed, WBC 15.7, labs are otherwise grossly unremarkable for an acute process. Reevaluation #4: 10/30/17 07:53 Case was discussed with Lissy, will accept admission at this time. Medical Decision Making - Lab Data Result diagrams: 10/30/17 02:56 10/30/17 02:56 Disposition Disposition: Admit Clinical Impression: Pneumonia Qualifiers: Pneumonia type: due to unspecified organism Laterality: left Lung location: lower lobe of lung Qualified Code(s): J18.1 - Lobar pneumonia, unspecified organism Disposition: Still a Patient at [facility] Decision to Admit: Admit from ER Decision to Admit Date: 10/30/17 Decision to Admit Time: 03:26 Condition: (2) Stable Time of Disposition: 03:26 Quality - Quality Measures Quality Measures: N/A - Blood Pressure Screening Does Patient Have Any of the Following: No Blood Pressure Classification: Normal BP Reading Systolic Measurement: 116 Diastolic Measurement: 72 Screening for High Blood Pressure: < Normal BP, F/U Not Required > [G8783]
[2017-10-30] MEDS ORDERED: 0.9 % SODIUM CHLORIDE 1000ML 1,000 ML IV SCH (03:00)
[2017-10-30 03:03] LABS: BASO % 0.1 % (0-6); EOS % 1.7 % (0-6); GRAN % 77.1 % (47-80); HEMATOCRIT 43.4 % (42.0-52.0); HEMOGLOBIN 14.7 gm/dl (14.0-18.0); LYMPH % 9.5 % (16-45); MEAN CELL VOLUME 87.3 fl (81-97); MEAN CORPUSCULAR HEMOGLOBIN 29.6 pg (27-33); MEAN CORPUSCULAR HGB CONC 33.9 g/dl (32-36); MEAN PLATELET VOLUME 10.2 fl (7.4-10.4); MONO % 11.6 % (0-9); PLATELET COUNT 338 K/uL (130-400); RED BLOOD COUNT 4.97 M/uL (4.40-5.70); RED CELL DISTRIBUTION WIDTH 14.8 % (11.5-14.5); WHITE BLOOD COUNT W/O DIFF 15.7 K/uL (4.2-12.2)
[2017-10-30 03:15] LABS: BLOOD UREA NITROGEN 17 mg/dL (6-20)
[2017-10-30 03:16] LABS: CREATININE 0.9 mg/dL (0.7-1.2); EST GLOMERULAR FILTRATION RATE > 60 mL/min; TOTAL PROTEIN 7.4 g/dL (6.6-8.7)
[2017-10-30 03:18] LABS: GLUCOSE,RANDOM 146 mg/dL (74-109)
[2017-10-30 03:21] LABS: ALB/GLOB RATIO 0.9 (1.1-1.8); ALBUMIN 3.6 g/dL (4.0-5.0); ALKALINE PHOSPHATASE 99 U/L (40-129); ALT/SGPT 131 U/L (<41); AST/SGOT 81 U/L (10.0-50.0)
[2017-10-30] MEDS ORDERED: LEVOFLOXACIN/D5W 750 MG/150 ML BAG IVPB ONE (03:23)
[2017-10-30] MEDS ORDERED: PIPERACILLIN SODIUM/TAZOBACTAM 4.5 GM in 0.9 % SODIUM CHLORIDE 100ML 100 ML IVPB ONE (03:23)
[2017-10-30] MEDS ORDERED: IPRATROPIUM/ALBUTEROL (0.5MG/3MG) NEB INH PRN (04:06)
[2017-10-30] MEDS ORDERED: FENTANYL PF 100MCG/2ML VIAL IVP PRN (04:06)
[2017-10-30] MEDS ORDERED: ALBUTEROL SULFATE (0.083%) 2.5 MG/3 ML NEB INH PRN (04:06)
[2017-10-30] MEDS ORDERED: ACETAMINOPHEN 500 MG TABLET PO PRN (04:06)
[2017-10-30] MEDS: LEVOFLOXACIN/D5W 750 MG/150 ML BAG IVPB SCH (05:13)
[2017-10-30] MEDS: 0.9 % SODIUM CHLORIDE 1000ML 1,000 ML IV PRN (05:15)
[2017-10-30] MEDS: PIPERACILLIN SODIUM/TAZOBACTAM 4.5 GM in 0.9 % SODIUM CHLORIDE 100ML 100 ML IVPB SCH ×3 (09:00→20:47)
[2017-10-30] MEDS ORDERED: IBUPROFEN 600 MG TABLET PO PRN (09:09)
--- NOTE | 2017-10-30 09:25 | History & Physical ---
History of Present Illness - Date of Service Date of Service for History & Physical: 10/30/17 - History of Present Illness Admitting Diagnosis: CAP-Failed outpatient History of Present Illness: Johnathan Goodman is a 47 yo male who presented to the ED for evaluation of continued left sided chest pain following recent diagnosis of PNA during hospitalization on 10/25/2017. Patient was admitted at that time and started on antibiotics (Azithromycin and Rocephin) and chose to leave against recommendation on 10/26/2017. He returned to the ED on 10/28/2017 for worsening left sided chest pain. Patient was willing to try [place] 5/325mg as needed for his pain symptoms at that time, however he reports that Honaker has not been helping. Patient reports increased BHARTI and pain symptoms. Patient's SO also reports that she has been monitoring his oxygen saturation, has been unable to obtain a reading greater than 94%. Patient denies fevers, chills, or vomiting symptoms. Patient denies hx of tobacco use. Patient denies history of DVT, calf swelling or pain symptoms. PMHx includes HTN, GERD, hiatal hernia and daily alcohol consumption. In the ED, vitals: T 98.1, HR 122, RR 24, BP 163/100, SPO2 93 on RA. Labs revealed WBC of 15.7. CXR showed worsening LLL infiltrate vs. effusion. Based on pt failing outpatient CAP treatment and worsening CXR, pt was admitted for inpatient management of his PNA. 10/30/2017 0930 Pt was resting comfortably in bed. Reported pain 5/10. Tolerated breakfast without nausea. C/o no bowel movement x 3 days. VSS on 2L of O2. Telemetry shows NSR. Will continue IV Zosyn and Levaquin. Added Prednisone, Mucinex and scheduled Duonebs and IS. Discontinued IV Fentanyl, changed to [place] 7.5/325mg and Motrin for pain control. CIWA scale initiated d/t pt reports of daily alcohol consumption. Travel Screening - Travel/Exposure Within Last 30 Days Have you traveled within the last 30 days?: Yes Location Detail:: [place] - Travel/Exposure Within Last Year Have you traveled outside the [place] in the last year?: No - Additonal Travel Details Have you been exposed to anyone with a communicable illness?: No - Travel Symptoms Symptom Screening: Joint & Muscle Aches, Fatigue, Lack of Appetite Review of Systems Constitutional: Denies: Chills, Fever, Malaise, Night sweats Eyes: Denies: Eye discharge, Eye pain ENT: Reports: Congestion. Denies: Ear pain, Epistaxis Respiratory: Reports: Dyspnea (mild). Denies: Cough, Hemoptysis Cardiovascular: Reports: Chest pain. Denies: Dyspnea on exertion Endocrine: Denies: Fatigue, Heat or cold intolerance Gastrointestinal: Reports: Constipation. Denies: Abdominal pain, Nausea, Vomiting Genitourinary: Denies: Incontinence, Retention Musculoskeletal: Denies: Arthralgia, Back pain, Gout, Joint swelling Skin: Denies: Bruising, Change in color Neurological: Denies: Abnormal gait, Confusion, Seizure Psychiatric: Denies: Anxiety Hematological/Lymphatic: Denies: Anemia, Blood Clots Past Medical History - SOCIAL HISTORY Smoking Status: Never smoker Alcohol Use Comment: 6 pk daily Drug Use: None - RESPIRATORY Hx Respiratory Disorders: Yes Hx Bronchitis: Yes Hx Pneumonia: Yes - CARDIOVASCULAR Hx Cardio Disorders: Yes Hx Hypertension: Yes - NEURO Hx Neuro Disorders: No - GI Hx GI Disorders: Yes Hx Reflux: Yes Hx Hiatal Hernia: Yes - Hx Genitourinary Disorders: No - ENDOCRINE Hx Endocrine Disorders: No Hx Diabetes: No Hx Thyroid Disease: No - MUSCULOSKELETAL Hx Musculoskeletal Disorders: Yes Hx Arthritis: Yes - PSYCH Hx Psych Problems: No - HEMATOLOGY/ONCOLOGY Hx Hematology/Oncology Disorders: No Family Medical History Hx Cancer: Grandparents Hx Resp Disorders: Mother H&P Meds/Allergies - Allergies Allergies: Allergies Allergy/AdvReac Type Severity Reaction Status Date / Time No Known Drug Allergies Allergy Verified 06/04/17 07:28 - Home Medications Previous Rx's Medication Instructions Recorded Benzonatate [Tessalon Perle] 100 mg PO TID #15 capsule 06/04/17 Acetaminophen [Tylenol 500Mg Tab] 1,000 mg PO Q6H PRN tablet 10/26/17 Azithromycin [Zithromax] 500 mg PO DAILY #10 tab 10/26/17 Cephalexin [Keflex] 500 mg PO QID #40 cap 10/26/17 Hydrocodone/Acetaminophen [[place] 1 each PO Q6H PRN #8 tablet 10/28/17 5-325 Tablet] - Active Medications Active Medications: Current Medications Albuterol Sulfate () 2.5 mg INH RESP.Q2H PRN PRN Reason: DIFFICULTY IN BREATHING Albuterol/Ipratropium (Duoneb) 3 ml INH RESP.Q4H.WA [facility] Atorvastatin Calcium (Lipitor) 10 mg PO QHS [facility] Benzonatate (Tessalon) 100 mg PO TID [facility] Docusate Sodium (Colace) 100 mg PO DAILY [facility] Enoxaparin Sodium (Lovenox) 40 mg SQ DAILY [facility] Guaifenesin (Mucinex) 1,200 mg PO BID [facility] Sodium Chloride () 1,000 mls @ 125 mls/hr IV .Q8H PRN PRN Reason: LARGE VOLUME IV Last Admin: 10/30/17 05:15 Dose: 125 mls/hr Levofloxacin/Dextrose (Levaquin 750mg Ivpb) 750 mg in 150 mls @ 125 mls/hr IVPB Q24H [facility] Stop: 11/04/17 05:01 Last Infusion: 10/30/17 07:20 Dose: Infused Piperacillin Sod/Tazobactam (Sod 4.5 gm/ Sodium Chloride) 100 mls @ 200 mls/hr IVPB Q6H [facility] Last Admin: 10/30/17 09:00 Dose: 200 mls/hr Ibuprofen (Motrin 600mg) 600 mg PO Q8H PRN PRN Reason: PAIN - MILD (1-4) Zolpidem Tartrate (Ambien) 5 mg PO QHS [facility] Physical Exam - Vital Signs Vital Signs: Vital Signs - Last 24 Hrs Temp Pulse Resp BP Pulse Ox 10/30/17 08:31 20 10/30/17 03:55 99.0 F 112 H 22 116/72 97 10/30/17 03:30 110 H 26 H 110/77 97 10/30/17 02:51 98.1 F 122 H 24 163/100 93 L - General General Appearance: Alert, Oriented x3, Cooperative, Mild distress Limitations: No limitations - Head Head exam: Atraumatic, Normocephalic, Normal inspection Head exam detail: negative: Abrasion, Contusion, Rader's sign, General tenderness, Hematoma, Laceration - Eye Eye exam: Normal appearance. negative: Conjunctival injection, Periorbital swelling, Periorbital tenderness, Scleral icterus - ENT Ear exam: negative: Auricular hematoma, Auricular trauma Nasal Exam: negative: Active bleeding, Discharge, Dried blood, Foreign body Mouth exam: negative: Drooling, Laceration, Muffled voice, Tongue elevation - Neck Neck exam: Normal inspection. negative: Meningismus, Tenderness - Respiratory Respiratory exam: Decreased breath sounds. negative: Rales, Respiratory distress, Rhonchi, Stridor, Wheezes - Cardiovascular Cardiovascular Exam: Regular rate, Normal rhythm, Normal heart sounds, Tachycardia - GI/Abdominal GI/Abdominal exam: Soft. negative: Rebound, Rigid, Tenderness - Rectal Rectal exam: Deferred - exam: Deferred - Extremities Extremities exam: Normal inspection. negative: Calf tenderness, Pedal edema, Tenderness - Back Back exam: Denies: CVA tenderness (R), CVA tenderness (L) - Neurological Neurological exam: Alert, Normal gait, Oriented X3 - Psychiatric Psychiatric exam: Normal affect, Normal mood - Skin Skin exam: Normal color. negative: Abrasion Type of lesion: negative: abrasion Results - Labs Result Diagrams: 10/30/17 02:56 10/30/17 02:56 Labs Last 24 Hours: Laboratory Results - last 24 hr 10/30/17 10/30/17 02:56 02:56 WBC 15.7 H RBC 4.97 Hgb 14.7 Hct 43.4 MCV 87.3 MCH 29.6 MCHC 33.9 RDW 14.8 H Plt Count 338 MPV 10.2 Gran % 77.1 Lymphocytes % 9.5 L Monocytes % 11.6 H Eosinophils % 1.7 Basophils % 0.1 Sodium 137 Potassium 4.0 Chloride 97 L Carbon Dioxide 25.0 Anion Gap 15.0 BUN 17 Creatinine 0.9 Estimated GFR > 60 Random Glucose 146 H Calcium 9.4 Total Bilirubin 0.50 AST 81 H ALT 131 H Alkaline Phosphatase 99 Total Protein 7.4 Albumin 3.6 L Globulin 3.8 Albumin/Globulin Ratio 0.9 L - Imaging and Cardiology Chest x-ray Status: Pending, Image reviewed VTE H&P Assessment - Risk for VTE Risk for VTE: Yes Risk Level: Low Risk Assessment Date: 10/30/17 Risk Assessment Time: 09:24 VTE Orders Placed or Will Be Placed: Yes Plan - Inpatient Certification Inpatient Certification: Admit to inpatient care: Based on my medical assessment, after consideration of patient's risk factors (age, co-morbidities and patient presenting symptoms and acuity), I expect that this patient will remain in the hospital greater than or equal to two midnights and that the services needed warrant inpatient care because: Patient Risk Factors: [Failed outpatient CAP treatment] Estimated length of stay: [48-92 hours] The patient may reasonably be expected to be discharged or transferred to a hospital within 96 hours after admission to [facility]. Services needed: [IV antibiotics, Respiratory Therapy] Post hospital care (if known): [] I certify that my determination is in accordance with my understanding of Medicare requirements for reasonable and necessary inpatient services. 10/30/17 09:24 - Detailed Diagnosis and Plan (1) Pneumonia Current Visit: Yes Status: Acute Qualifiers: Pneumonia type: due to unspecified organism Laterality: left Lung location: lower lobe of lung Qualified Code(s): J18.1 - Lobar pneumonia, unspecified organism Base Code: J18.9 - PNEUMONIA, UNSPECIFIED ORGANISM Comment: 10/30/2017 -CXR in ED showed worsening LLL PNA -750mg Levaquin IV q. 24 hours -4.5gm Zosyn IV q. 6 hours -ordered Duonebs q. 4 hours while awake -ordered Incentive Spirometry -ordered Mucinex 1200mg PO BID -ordered Prednisone 40mg q. day with meal x 5 days (2) History of alcohol consumption Current Visit: Yes Status: Acute Base Code: Z87.898 - PERSONAL HISTORY OF OTHER SPECIFIED CONDITIONS Comment: 10/30/2017 -Pt hx of 6 pk of beer per day -Ordered CIWA scale -will consider IV Ativan if withdrawl symptoms occur (score over 8) (3) At risk for deep venous thrombosis Current Visit: Yes Status: Acute Base Code: Z91.89 - OTH PERSONAL RISK FACTORS, NOT ELSEWHERE CLASSIFIED Comment: 10/30/2017 -ordered Lovenox 40mg subq. daily for DVT prophylaxis (4) Full code status Current Visit: Yes Status: Acute Base Code: Z78.9 - OTHER SPECIFIED HEALTH STATUS Comment: 10/30/2017 -Full Code Status
[2017-10-30] MEDS: BENZONATATE 100 MG CAPSULE PO SCH ×3 (09:30→22:40)
--- NOTE | 2017-10-30 10:08 | RADIOLOGY REPORT ---
EXAM: CHEST, TWO VIEWS HISTORY: DIFFICULTY IN BREATHING, LEFT SIDED CHEST PAIN FOR A DAY. TECHNIQUE: PA and lateral views of the chest were obtained. Comparison: Two view chest 10/28/17. FINDINGS: There has been progressive opacification in the left base since two days earlier on 10/28/17, likely a combination of pleural and parenchymal, probably pneumonitis and associated pleural effusion. Continued follow-up suggested. The left heart border is obscured by the progressive opacification, but as visualized the heart size is probably stable. The right lung appears essentially clear. No pneumothorax evident. IMPRESSION: PROGRESSIVE OPACIFICATION IN THE LEFT LOWER HEMITHORAX PROBABLY A COMBINATION OF INFILTRATE AND EFFUSION. CONTINUED FOLLOW-UP SUGGESTED. JOB NUMBER: [id number] [facility]
[2017-10-30] MEDS: ENOXAPARIN 40 MG/0.4 ML SYR SQ SCH (10:39)
[2017-10-30] MEDS: GUAIFENESIN 1,200 MG TABLET PO SCH ×2 (10:39→22:42)
[2017-10-30] MEDS: DOCUSATE SODIUM 100 MG CAPSULE PO SCH (10:39)
[2017-10-30] MEDS: IPRATROPIUM/ALBUTEROL (0.5MG/3MG) NEB INH SCH ×4 (10:55→20:06)
[2017-10-30] MEDS: PREDNISONE 20 MG TAB PO SCH (12:33)
[2017-10-30] MEDS: HYDROCODONE/APAP 7.5/325MG TABLET PO PRN ×2 (12:33→22:43)
[2017-10-30] MEDS ORDERED: ZOLPIDEM TARTRATE 5 MG TABLET PO SCH (22:00)
[2017-10-30] MEDS ORDERED: ATORVASTATIN 20 MG TABLET PO SCH (22:00)
[2017-10-31] MEDS: IPRATROPIUM/ALBUTEROL (0.5MG/3MG) NEB INH SCH ×4 (00:10→14:08)
[2017-10-31] MEDS: PIPERACILLIN SODIUM/TAZOBACTAM 4.5 GM in 0.9 % SODIUM CHLORIDE 100ML 100 ML IVPB SCH ×2 (03:09→08:05)
[2017-10-31] MEDS: LEVOFLOXACIN/D5W 750 MG/150 ML BAG IVPB SCH (04:14)
[2017-10-31 06:17] LABS: HEMATOCRIT 42.2 % (42.0-52.0); HEMOGLOBIN 13.5 gm/dl (14.0-18.0); MEAN CELL VOLUME 89.4 fl (81-97); MEAN CORPUSCULAR HEMOGLOBIN 28.6 pg (27-33); MEAN PLATELET VOLUME 9.9 fl (7.4-10.4); PLATELET COUNT 336 K/uL (130-400); RED BLOOD COUNT 4.72 M/uL (4.40-5.70); RED CELL DISTRIBUTION WIDTH 14.9 % (11.5-14.5); WHITE BLOOD COUNT W/O DIFF 19.5 K/uL (4.2-12.2)
[2017-10-31 06:49] LABS: ALB/GLOB RATIO 0.9 (1.1-1.8); ALBUMIN 3.2 g/dL (4.0-5.0); ALKALINE PHOSPHATASE 103 U/L (40-129); ALT/SGPT 135 U/L (<41); AST/SGOT 66 U/L (10.0-50.0); BLOOD UREA NITROGEN 10 mg/dL (6-20); CREATININE 0.7 mg/dL (0.7-1.2); EST GLOMERULAR FILTRATION RATE > 60 mL/min; GLUCOSE,RANDOM 133 mg/dL (74-109); TOTAL PROTEIN 6.9 g/dL (6.6-8.7)
[2017-10-31] MEDS: 0.9 % SODIUM CHLORIDE 1000ML 1,000 ML IV PRN (07:58)
[2017-10-31] MEDS: HYDROCODONE/APAP 7.5/325MG TABLET PO PRN (08:05)
[2017-10-31] MEDS: PREDNISONE 20 MG TAB PO SCH (08:06)
[2017-10-31] MEDS ORDERED: MAGNESIUM HYDROXIDE 30 ML UDC PO PRN (10:42)
[2017-10-31] MEDS: BENZONATATE 100 MG CAPSULE PO SCH (10:53)
[2017-10-31] MEDS: GUAIFENESIN 1,200 MG TABLET PO SCH (10:53)
[2017-10-31] MEDS: ENOXAPARIN 40 MG/0.4 ML SYR SQ SCH (10:55)
[2017-10-31] MEDS: DOCUSATE SODIUM 100 MG CAPSULE PO SCH (10:55)
[2017-10-31 14:16] LABS: BASO % 0.1 % (0-6); HEMATOCRIT 41.4 % (42.0-52.0); HEMOGLOBIN 13.6 gm/dl (14.0-18.0); LYMPH % 1.9 % (16-45); MEAN CELL VOLUME 88.5 fl (81-97); MEAN CORPUSCULAR HGB CONC 32.9 g/dl (32-36); MEAN PLATELET VOLUME 9.9 fl (7.4-10.4); MONO % 6.3 % (0-9); PLATELET COUNT 354 K/uL (130-400); RED BLOOD COUNT 4.68 M/uL (4.40-5.70); RED CELL DISTRIBUTION WIDTH 14.9 % (11.5-14.5); WHITE BLOOD COUNT W/O DIFF 18.1 K/uL (4.2-12.2)
--- NOTE | 2017-10-31 16:01 | Discharge Summary ---
Providers Discharge Summary Date: 10/31/17 Date of admission: 10/30/17 03:45 Expected Date of Discharge: 10/31/17 Attending physician: JESS CHRISTIANSON Primary care physician: TERESA BOOGIE D.O. Physical Exam - Vital Signs Vital Signs: Vital Signs - Last 24 Hrs Temp Pulse Pulse Resp BP Pulse Ox 10/31/17 14:19 92 H 16 99 10/31/17 10:08 100 H 16 10/31/17 09:40 104 H 18 93 L 10/31/17 08:55 104 H 18 98 10/31/17 08:21 96 H 18 10/31/17 06:00 96 H 18 130/86 98 10/31/17 05:45 89 14 97 10/30/17 22:00 98.5 F 94 H 20 113/78 95 10/30/17 20:55 111 H 16 10/30/17 20:00 96 H 16 97 10/30/17 18:00 98 F 111 H 16 123/72 93 L 10/30/17 16:18 18 - General General Appearance: Alert, Oriented x3, Cooperative, No acute distress Limitations: No limitations - Head Head exam: Atraumatic, Normocephalic, Normal inspection Head exam detail: negative: Abrasion, Contusion, Rader's sign, General tenderness, Hematoma, Laceration - Eye Eye exam: Normal appearance. negative: Conjunctival injection, Periorbital swelling, Periorbital tenderness, Scleral icterus - ENT Ear exam: negative: Auricular hematoma, Auricular trauma Nasal Exam: negative: Active bleeding, Discharge, Dried blood, Foreign body Mouth exam: negative: Drooling, Laceration, Muffled voice, Tongue elevation - Neck Neck exam: Normal inspection. negative: Meningismus, Tenderness - Respiratory Respiratory exam: Decreased breath sounds. negative: Rales, Respiratory distress, Rhonchi, Stridor, Wheezes - Cardiovascular Cardiovascular Exam: Regular rate, Normal rhythm, Normal heart sounds, Tachycardia - GI/Abdominal GI/Abdominal exam: Soft. negative: Rebound, Rigid, Tenderness - Rectal Rectal exam: Deferred - exam: Deferred - Extremities Extremities exam: Normal inspection. negative: Calf tenderness, Pedal edema, Tenderness - Back Back exam: Denies: CVA tenderness (R), CVA tenderness (L) - Neurological Neurological exam: Alert, Normal gait, Oriented X3 - Psychiatric Psychiatric exam: Normal affect, Normal mood - Skin Skin exam: Normal color. negative: Abrasion Type of lesion: negative: abrasion Hospitalization - Hospitalization Admission Diagnosis: CAP-Failed outpatient - Problem List/Discharge Diagnosis (1) Pneumonia Status: Acute Discharge Diagnosis: Pneumonia type: due to unspecified organism Laterality: left Lung location: lower lobe of lung Qualified Code(s): J18.1 - Lobar pneumonia, unspecified organism Base Code: J18.9 - PNEUMONIA, UNSPECIFIED ORGANISM Comment: 10/31/2017 -CXR in ED showed worsening LLL PNA -Pt. has tolerated increasing activity on room air and sats 94% -changed levaquin to PO -Will plan to d/c home this evening (2) History of alcohol consumption Status: Acute Base Code: Z87.898 - PERSONAL HISTORY OF OTHER SPECIFIED CONDITIONS Comment: 10/30/2017 -Pt hx of 6 pk of beer per day -CIWA scores continue to be 0 with each shift assessment (3) At risk for deep venous thrombosis Status: Acute Base Code: Z91.89 - OTH PERSONAL RISK FACTORS, NOT ELSEWHERE CLASSIFIED Comment: 10/31/2017 -will not d/c home with dvt prophylaxis, mobility not impaired. (4) Full code status Status: Acute Base Code: Z78.9 - OTHER SPECIFIED HEALTH STATUS Comment: 10/31 -Full Code Status - Hospitalization Course Disposition: Home, Self-Care Hospital Course: Johnathan Goodman is a 47 yo male who presented to the ED for evaluation of continued left sided chest pain following recent diagnosis of PNA during hospitalization on 10/25/2017. Patient was admitted at that time and started on antibiotics (Azithromycin and Rocephin) and chose to leave against recommendation on 10/26/2017. He returned to the ED on 10/28/2017 for worsening left sided chest pain. Patient was willing to try [place] 5/325mg as needed for his pain symptoms at that time, however he reports that [place] has not been helping. Patient reports increased BHARTI and pain symptoms. Patient's SO also reports that she has been monitoring his oxygen saturation, has been unable to obtain a reading greater than 94%. Patient denies fevers, chills, or vomiting symptoms. Patient denies hx of tobacco use. Patient denies history of DVT, calf swelling or pain symptoms. PMHx includes HTN, GERD, hiatal hernia and daily alcohol consumption. In the ED, vitals: T 98.1, HR 122, RR 24, BP 163/100, SPO2 93 on RA. Labs revealed WBC of 15.7. CXR showed worsening LLL infiltrate vs. effusion. Based on pt failing outpatient CAP treatment and worsening CXR, pt was admitted for inpatient management of his PNA. 10/30/2017 0930 Pt was resting comfortably in bed. Reported pain 5/10. Tolerated breakfast without nausea. C/o no bowel movement x 3 days. VSS on 2L of O2. Telemetry shows NSR. Will continue IV Zosyn and Levaquin. Added Prednisone, Mucinex and scheduled Duonebs and IS. Discontinued IV Fentanyl, changed to [place] 7.5/325mg and Motrin for pain control. CIWA scale initiated d/t pt reports of daily alcohol consumption. 10/31/17 1400 Pt. is up ambulating in his room. He reports improved ease of breathing and left chest pain. He did have a med size BM this am and he reports great relief. CIWA score remains 0. Repeat labs are stable, vitals remain stable. Will plan to discharge home with PO levaquin and continue prednisone. Pt. has f /u with his PCP on Saturday11/05/17. Procedures: Imaging and X-Rays 10/30/17 02:52 CHEST 2 VIEWS [RAD] Stat Cardiology Procedures 10/30/17 02:56 EKG NOW 10/30/17 04:06 Medical Psychotherapist .Continuous Abnormal Labs: Abnormal Lab Results 10/30/17 10/30/17 10/31/17 Range/Units 02:56 02:56 06:10 WBC 15.7 H 19.5 H (4.2-12.2) K/uL Hgb 13.5 L (14.0-18.0) gm/dl Hct (42.0-52.0) % RDW 14.8 H 14.9 H (11.5-14.5) % Neutrophils % (47-80) % Lymphocytes % 9.5 L (16-45) % Monocytes % 11.6 H (0-9) % Lymphocytes 7.0 L (16-45) % Potassium (3.4-4.5) mmol/L Chloride 97 L (98-107) mmol/L Random Glucose 146 H (74-109) mg/dL AST 81 H (10.0-50.0) U/L ALT 131 H (<41) U/L Albumin 3.6 L (4.0-5.0) g/dL Albumin/Globulin Ratio 0.9 L (1.1-1.8) 10/31/17 10/31/17 Range/Units 06:10 14:07 WBC 18.1 H (4.2-12.2) K/uL Hgb 13.6 L (14.0-18.0) gm/dl Hct 41.4 L (42.0-52.0) % RDW 14.9 H (11.5-14.5) % Neutrophils % 94.0 H (47-80) % Lymphocytes % 1.9 L (16-45) % Monocytes % (0-9) % Lymphocytes 2.0 L (16-45) % Potassium 4.6 H (3.4-4.5) mmol/L Chloride (98-107) mmol/L Random Glucose 133 H (74-109) mg/dL AST 66 H (10.0-50.0) U/L ALT 135 H (<41) U/L Albumin 3.2 L (4.0-5.0) g/dL Albumin/Globulin Ratio 0.9 L (1.1-1.8) Condition at Discharge: (2) Stable VTE Discharge VTE Reason For No Overlap Therapy: Not Indicated (Pt. will return to normal level of activity) Discharge Medications - Discharge Medications Prescriptions: Levofloxacin [Levaquin] 500 mg PO DAILY #5 tablet Prednisone [Prednisone 20Mg] 40 mg PO DAILYWM #6 tab Home Medications: Ambulatory Orders Atorvastatin Calcium [Lipitor] 10 mg PO QHS 06/04/17 [Last Taken 06/03/17] Benzonatate [Tessalon Perle] 100 mg PO TID #15 capsule 06/04/17 [Last Taken Unknown] Zolpidem Tartrate 10 mg PO QHS 06/04/17 [Last Taken 06/01/17] Acetaminophen [Tylenol 500Mg Tab] 1,000 mg PO Q6H PRN tablet 10/26/17 [Last Taken Unknown] Levofloxacin [Levaquin] 500 mg PO DAILY #5 tablet 10/31/17 [Last Taken Unknown] Prednisone [Prednisone 20Mg] 40 mg PO DAILYWM #6 tab 10/31/17 [Last Taken Unknown] Discharge Plan - Discharge Instructions Activity at Discharge: Increase Activity as Tolerated Diet at Discharge: Regular Diet Instructions: Pneumonia (DC) Additional Instructions: Take levaquin 500mg every morning until completed Take prednisone 40mg (2 tablets) daily with food until completed Follow up with Dr. Boogie at scheduled on Sunday 11/05 at 4:10 Return to the ED if your symptoms worsen, or if you have any chest pain. Quality Measures - Quality Measures Quality Measures: Documentation of Current Medications in Medical Record, Screening for High Blood Pressure and F/U Documented - Current Medications Quality Measure: Measure #130: Documentation of Current Medications Documentation of Current Medications: <Current Medications Documented/Reviewed> [G8427] - Blood Pressure Screening Quality Measure: Screening for High Blood Pressure and Follow-Up Documented Does Patient Have Any of the Following: No Blood Pressure Classification: Hypertensive Reading Systolic Measurement: 143 Diastolic Measurement: 78 Screening for High Blood Pressure: < Pre-Hypertensive BP, F/U Documented > [ G8950] Pre-Hypertensive Follow-up Interventions: Referral to alternative/primary care provider. - Elder Abuse Suspicion Index EASI Reference Information: Nate GOOD, Deven C, Nidhi D, Demond [place].Development and validation of a tool to assist physicians identification of elder abuse: The Elder Abuse Suspicion Index (EASI ). Journal of Elder Abuse and Neglect, 2008; 20 (3): 276-300.
[2017-11-01] MEDS ORDERED: LEVOFLOXACIN 500 MG TABLET PO SCH (06:00)
== END 2017-10-31 17:00 | disposition home or self-care (01) | DRG 195 ==
LOC: ER 02:46 → MEDSURG 03:45
PROVIDERS: ADMIT Internal Medicine; ATTEND Internal Medicine
DX: J18.1 Lobar pneumonia, unspecified organism (principal); Z72.89 Other problems related to lifestyle; I10 Essential (primary) hypertension; M19.90 Unspecified osteoarthritis, unspecified site; F17.228 Nicotine dependence, chewing tobacco, with other nicotine-induced disorders
CPT/HCPCS: 71046; 80053; 85025; 85027; 93005; 93010; 94010; 94640; 96374; 96375; 99223; 99239; 99285; J1650; J1885; J1956; J2405; J2543; J7030; J7512